=== PATIENT | female | born 1975 | race Hispanic/Latino ===

== ENCOUNTER 2016-08-21 05:56 | Inpatient (IN) | payer MEDICAID ==
[~2016-08-21] VITALS: Ht 152.4 cm; Wt 79.8 kg
[~2016-08-21 05:56] MED LIST: CHOL100045 PO; PREN-51 PO
[2016-08-21] MEDS ORDERED: Lactated Ringer's 1,000 ML IV PRN (07:06)
[2016-08-21] MEDS ORDERED: Carboprost 250 mCg/mL Inj IM PRN ×2 (07:10→10:55)
[2016-08-21] MEDS ORDERED: Methylergonovine 0.2 mg/mL Inj IM PRN ×2 (07:10→10:55)
[2016-08-21] MEDS ORDERED: Oxytocin 30 Units/500 mL LR 30 UNITS in IV Premix 1 EACH IV PRN ×2 (07:10→10:55)
[2016-08-21] MEDS ORDERED: Sodium Chloride LOK Flush 10 mL Syringe IVFLUSH PRN (07:10)
[2016-08-21] MEDS ORDERED: Ondansetron 2 mg/mL 2 mL Inj IVPUSH PRN (07:10)
[2016-08-21] MEDS ORDERED: Hemorrhage Kit, Post Partum XX ONE ×2 (07:10→10:55)
[2016-08-21] MEDS ORDERED: Oxytocin 10 Unit/mL Inj IM PRN ×2 (07:10→10:55)
[2016-08-21 07:34] LABS: Mean Corpuscular Hemoglobin 30.1 pg (27.0-35.0)
--- NOTE | 2016-08-21 08:36 | PCM.HPOB ---
Subjective Date of Service: Aug 21, 2016 Referring Provider: Admitting Physician: Loren Carmona MD Primary Care Physician: Loren Carmona MD Attending Physician: Loren Carmona MD Chief Complaint Contractions. History of Present History of Present Illness 40 Y/O at 39 w0d and JANNIE 08/28/16 based LMP and consistent with 7 weeks US. Presented with contractions and SROM shortly after presentation. Cervix was 3 .5 cm /50%/-2/SROM clear fluid. BP elevated at presentation 130's/95's , no FULTON , change in vision and no N/V. complicated with: 1. AMA 2. H.Pylori gastritis, Dysphagia, GERD, and S/P endoscopy [facility]. On Zantac , omeprazole not effective. Plan for F/U [facility] after delivery. 3. HPV positive pap 2014, Repeat Pap smear 2015 WNL, HPV negative. 4. Multiparty desires permanent sterilization, consent signed 06/20/16. 5. Allergic Rhinitis, [facility]: S/P nasopharyngoscopy on Fluticasone 6. UTI 7. Heart murmur (intermittent) Past Medical History Gynecologic History: LMP 11/22/15 regular normal menstrual cycle. Medical History: G1: 1995: at Term , 7 lb , female, no complications. G2: 1999: at Term , 7 lb , male, no complications. G3: missed AB and D&C at 7 w. Surgical History: L/S Cholecystectomy Hx Tobacco Use: No Hx Alcohol Use: No Hx Substance Use: No Past Family History Family History DM: mother HTN: mother Twins: maternal and paternal side. Review of Systems ROS 10 points ROS is negative except for items mentioned in HPI. Allergy Coded Allergies: No Known Allergies (Verified , 08/21/16) Exam Vital Signs 149/70, 77, 18, 37.1 Exam 150 moderate variability positive accelerations and intermittent early/variable decelerations. Category 2 Constitutional: Well-developed HEENT: Atraumatic Lungs: Clear to Auscultation Heart: Regular Rate/Rhythm, Normal S1, Normal S2, No Murmurs/Rubs/Gallops Abdomen: Gravid Extremities: Pulses Palpable x4 Neurological/Psychiatric: Alert, Oriented X3 Additional Information 6 cm/100%/-3 Labs/Diagnostics Lab/Diagnostic Information A+, Antibody screen negative, Rubella immune, RPR: NR, Hep B Ag NR, HIV NR. GBS neg 08/01/16 GC/CT negative 01/20/16 DM screen negative at 6 weeks and at 25 weeks, 123 and 121 respectively. OB Intrapartum Assessment/Plan Assessment 40 Y/O at 39 w0d and JANNIE 08/28/16 based LMP and consistent with 7 weeks US. Active labor and SROM GBS negative multiparity desires permeant sterilization Pain Management: Declined epidural. Continue close FHT monitoring. Admit with orders and labs Edgard Ochoa MD Aug 21, 2016 08:36
[2016-08-21] MEDS ORDERED: RANI150T11 PO (09:24)
[2016-08-21] MEDS ORDERED: Benzocaine (Dermoplast) 20% 60 Gm Spray TOPICAL PRN (10:55)
[2016-08-21] MEDS ORDERED: Lactated Ringer's 1,000 ML IV SCH (10:55)
[2016-08-21] MEDS ORDERED: Witch Hazel-Glycerin Pads TOPICAL PRN (10:55)
[2016-08-21] MEDS ORDERED: LANOlin HPA 7 Gm Ointment TOPICAL PRN (10:55)
[2016-08-21] MEDS ORDERED: oxyCODONE-Acetamin 5-325 mg Tablet PO ONE (10:57)
[2016-08-21] MEDS: oxyCODONE-Acetamin 5-325 mg Tablet PO PRN ×4 (11:10→21:18)
--- NOTE | 2016-08-21 11:36 | OP ---
[address] [address] OPERATIVE REPORT PATIENT: CEDRICK JOINER : 1975 MR#: [id number] ADMIT: 08/21/2016 JOB ID: [id number] DATE OF SURGERY: 08/21/2016 SURGEON: Edgard Ochoa MD PERMASTONE INSTALLER: Moe Obando DO PREOPERATIVE DIAGNOSIS(ES): 1. Intrauterine at 39 weeks and 0 days. 2. Active labor with spontaneous rupture of membranes. 3. Advanced maternal age. POSTOPERATIVE DIAGNOSIS(ES): 1. Intrauterine at 39 weeks and 0 days. 2. Active labor with spontaneous rupture of membranes. Status post spontaneous vaginal delivery. 3. Advanced maternal age. PROCEDURE: Spontaneous vaginal delivery. DESCRIPTION OF THE PROCEDURE: This is a 40-year-old 4, para 2-0-1-2 presented at 39 weeks and 0 days with expected date of delivery of August 28, 2016 based on last menstrual period and consistent with seven weeks ultrasound. The patients contractions started around midnight August 21, 2016. The patient presented at around 6 a.m. Cervix was 3.5, 50%, -2, and spontaneous rupture of membranes with clear fluid noted at 6:04 a.m. The patient progressed spontaneously in labor to be completely dilated at 9:40 a.m. The patient pushed effectively without epidural to deliver on August 21, 2016, at 10:36 a.m. over an intact perineum. Delivered a female infant in cephalic presentation in right occiput anterior position with no nuchal cord. Shoulders delivered without difficulty. The was placed on the maternal abdomen. Delayed cord clamping was performed after 1 minute. Cord blood was collected for typing. Placenta delivered intact at 10:45 spontaneously with a three-vessel cord. Placenta was discarded. Perineum was examined, with no evidence of laceration. Female with Apgars of 8 and 9 at one and five minutes respectively. Late passage of meconium was noted. Weight is still pending. All instrument, needles, and sponge counts were correct x2. Mother and are covering in the delivery room and in stable condition. IEdgard MD, was present and scrubbed for the entire delivery. [facility]
[2016-08-21] MEDS ORDERED: Ascorbic Acid 500 mg Tablet PO SCH (17:30)
[2016-08-22] MEDS: oxyCODONE-Acetamin 5-325 mg Tablet PO PRN ×2 (06:54→10:49)
--- NOTE | 2016-08-22 06:59 | PCM.HPANE ---
Patient Data Surgeon Admitting Provider:Loren Carmona MD Attending Provider:Loren Carmona MD Primary Care Physician:Loren Carmona MD Other Provider:Maria Esther Zavaleta Anesthesia Reason for Visit Term Labor TERM LABOR Ht/WT & BMI Body Mass Index Allergies Coded Allergies: No Known Allergies (Verified , 08/21/16) Past Anesthesia History Anesthesia History: Denies:: Abnormal Airway, Difficult Intubation Diabetes History Hx Diabetes?: No MRSA MRSA: No Medications Active Scripts Docusate Sodium (Colace)100 Mg [id number] Mg PO DAILY PRN For Constipation #10 CAPSULE Prov:Edgard Ochoa MD 08/22/16 oxyCODONE-Acetaminophen 5-325 mg 1 Each Tablet1-2 Tab PO Q4H PRN For Pain #40 TABLET Ref 0 Prov:Edgard Ochoa MD 08/22/16 Ibuprofen 600 Mg [id number] Mg PO Q6H PRN For Mild Pain #100 TABLET Ref 1 Prov:Edgard Ochoa MD 08/22/16 Ferrous Sulfate (Feosol)325 Mg [id number] Mg PO DAILY #90 TABLET Ref 0 Prov:Edgard Ochoa MD 08/22/16 Reported Medications Ranitidine (Zantac)150 Mg [id number] Mg PO BID 08/21/16 Vit No.78/Iron/FA (Prenatabs FA Tablet)1 Each Tablet1 Each PO DAILY 11/23/14 Discontinued Reported Medications Cholecalciferol (Vitamin D3) (Vitamin D)1,000 Unit Capsule1,000 Unit PO DAILY # 1 BOTTLE Ref 0 11/23/14 History History of ENT Problems?: No HEENT History: Denies:: Abnormal Airway Difficult Intubation Hx of Heart Problems?: No Hx of Respiratory Problem?: No Hx Neurologic Problems?: No Neurological History: Positive for:: Dizziness ( hx persistent vertigo with nausea/vomiting) Hx of GI Problems?: No Hx of Problems?: No Female Hx: Denies:: Currently Hx Musculoskeletal Problems?: No Hx of Psycho/Social Problems?: No Psycho Social History: Positive for:: Hx Depression Hx Surgeries?: No Hx Any Other Health Problems?: No Other History: Denies:: Cancer Hx Diabetes: No Hx Alcohol Use: NoHx Substance Use: No Smoking Status: Never Smoker Stop/Bang Risk Assessment Category Category 1A: Patient has history of documented sleep apnea, and HAS NOT received any narcotic, sedative or anesthesia administration during this stay. Category 1B: Patient has history of documented sleep apnea, and HAS received any narcotic , sedative or anesthesia administration during this stay Category 2: Patient has SUSPECTED Obstructive Sleep Apnea, and HAS received any narcotic , sedative or anesthesia administration during this stay. Category 3: Patient has SUSPECTED Obstructive Sleep Apnea and HAS NOT received narcotic, sedative or anesthesia administration during this stay. Category 4: Outpatient in Procedural Areas with known sleep apnea or who screen positive for High Risk via the STOP/BANG questionnaire. Meds/Labs/Diagnostics Admission Meds Current Medications Ferrous Sulfate (Feosol) 325 mg BIDWM PO Last administered on 08/21/16 17:29; Start 08/21/16 at 17:30 Ascorbic Acid (Vitamin C) 500 mg BIDWM PO Last administered on 08/21/16 17:29; Start 08/21/16 at 17:30 Labs Test 08/21/16 06:40 White Blood Count 9.5th/mm3 (3.8-10.1) Red Blood Count 4.22mil/mm3 (3.90-5.20) Hemoglobin 12.7g/dL (12.0-15.6) Hematocrit 36.7% (35.0-46.0) Mean Corpuscular Volume 87.0fL (81-100) Mean Corpuscular Hemoglobin 30.1pg (27.0-35.0) Mean Corpuscular Hemoglobin Concent 34.6% (32.0-37.0) Red Cell Distribution Width 14.6% (12.3-15.4) Platelet Count 196bil/L (150-400) Hematology Comments Urine Random Creatinine 28mg/dL (16-392) Urine Random Total Protein 7mg/dL (0-15) Urine Protein/Creatinine Ratio 0.25 Blood Urea Nitrogen 11mg/dL (6-20) Creatinine 0.54mg/dL (0.57-1.00) Uric Acid 5.5mg/dL (2.6-7.2) Aspartate Amino Transf (AST/SGOT) 25U/L (0-50) Alanine Aminotransferase (ALT/SGPT) 18U/L (0-32) Plan Impression Patient chart reviewed, patient interviewed and anesthestic plan with risks, benefits, and alternatives discussed, and informed consent obtained. NPO Status: confirmed before mn Other verbal communictaion from Child Care Specialist, confirmed by nursing staff, procedure, Tubal Ligation cancelled.as of 0850 Norman Granados MD Aug 22, 2016 06:59
[2016-08-22 07:32] LABS: Mean Corpuscular Hemoglobin 29.5 pg (27.0-35.0); Mean Corpuscular Volume 87.6 fL (81-100)
--- NOTE | 2016-08-22 08:47 | PCM.DIOB ---
Obstetrical Disch Instruction Date of Service: Aug 22, 2016 Dates of Hospitalization Date of Hospital Admission Aug 21, 2016 at 06:10 Providers Admitting Physician: Loren Carmona MD Primary Care Physician: Loren Carmona MD Attending Physician: Loren Carmona MD Discharge Diagnosis Discharge Diagnosis Status post normal vaginal delivery Mild anemia Post Operative diagnosis Status post normal vaginal delivery Mild anemia Problems: Diet Discharge Diet: No restrictions Activity Discharge Activity-General: Pelvic Rest for 6 weeks (No sex, no tampons, nor douching) Dressing and Incisional Care Hygiene: May shower, Perineal care, Sitz bath, Dermoplast spray Follow Up Plan Follow-up Provider (F9): Edgard Ochoa MD Follow-up appointment: Weeks (Two ) Call your provider for: Fever or Chills, Shortness of breath, Heavy vaginal bleeding, Heavy bleeding, Epigastric pain (nausea or vomiting ), Excessive constipation, Vaginal discomfort, Red painful breasts, Other (Headache, change in vision , leg swelling, leg pain or change in color. ) Edgard Ochoa MD Aug 22, 2016 08:47
[2016-08-22] MEDS ORDERED: OXYC1TAB24 PO (08:50)
[2016-08-22] MEDS ORDERED: IBUP-1827 PO (08:50)
[2016-08-22] MEDS ORDERED: DOCU-41 PO (08:50)
[2016-08-22] MEDS ORDERED: FERR-74 PO (08:50)
--- NOTE | 2016-08-22 08:51 | PCM.DC.OB ---
Obstetrical Discharge Summary Date of Service Aug 22, 2016 Date of hospital admission Aug 21, 2016 at 06:10 Date of Discharge: Aug 22, 2016 Providers Admitting Physician: Loren Carmona MD Primary Care Physician: Loren Carmona MD Attending Physician: Loren Carmona MD Diagnosis at Time of Discharge Status post normal vaginal delivery Mild anemia Problems: Brief History and Physical: 40 Y/O at 39 w0d and JANNIE 08/28/16 based LMP and consistent with 7 weeks US. Presented with contractions and SROM shortly after presentation. Cervix was 3 .5 cm /50%/-2/SROM clear fluid. BP elevated at presentation 130's/95's , no FULTON , change in vision and no N/V. complicated with: 1. AMA 2. H.Pylori gastritis, Dysphagia, GERD, and S/P endoscopy [facility]. On Zantac , omeprazole not effective. Plan for F/U [facility] after delivery. 3. HPV positive pap 2014, Repeat Pap smear 2015 WNL, HPV negative. 4. Multiparty desires permanent sterilization, consent signed 06/20/16. 5. Allergic Rhinitis, [facility]: S/P nasopharyngoscopy on Fluticasone 6. UTI 7. Heart murmur (intermittent) Delivered via 08/22/16. Outcome: Female with Apgars of 8 and 9 at one and five minutes respectively weight 3075 g. See delivery note for details. Hospital Course: At discharge pain was well controlled. Patient was ambulating, voiding without difficulty and tolerating regular diet with no nausea and no vomiting. Exam Vital Signs 120/59 68 16 36.8 Constitutional: Well-developed HEENT: Atraumatic Lungs: Clear to Auscultation Heart: Regular Rate/Rhythm, Normal S1, Normal S2, No Murmurs/Rubs/Gallops Abdomen: Fundus firm. Extremities: Pulses Palpable x4 Neurological/Psychiatric: Alert, Oriented X3 Laboratory Tests 72 Hours Test 08/21/16 06:40 08/22/16 07:07 White Blood Count 9.5th/mm3 (3.8-10.1) 12.2th/mm3 (3.8-10.1) Red Blood Count 4.22mil/mm3 (3.90-5.20) 3.56mil/mm3 (3.90-5.20) Hemoglobin 12.7g/dL (12.0-15.6) 10.5g/dL (12.0-15.6) Hematocrit 36.7% (35.0-46.0) 31.2% (35.0-46.0) Mean Corpuscular Volume 87.0fL (81-100) 87.6fL (81-100) Mean Corpuscular Hemoglobin 30.1pg (27.0-35.0) 29.5pg (27.0-35.0) Mean Corpuscular Hemoglobin Concent 34.6% (32.0-37.0) 33.7% (32.0-37.0) Red Cell Distribution Width 14.6% (12.3-15.4) 14.9% (12.3-15.4) Platelet Count 196bil/L (150-400) 177bil/L (150-400) Hematology Comments Urine Random Creatinine 28mg/dL (16-392) Urine Random Total Protein 7mg/dL (0-15) Urine Protein/Creatinine Ratio 0.25 Blood Urea Nitrogen 11mg/dL (6-20) Creatinine 0.54mg/dL (0.57-1.00) Uric Acid 5.5mg/dL (2.6-7.2) Aspartate Amino Transf (AST/SGOT) 25U/L (0-50) Alanine Aminotransferase (ALT/SGPT) 18U/L (0-32) Labs/Diagnostics Labs/Diagnostics Lab/Diagnostic Information A+, Antibody screen negative, Rubella immune, RPR: NR, Hep B Ag NR, HIV NR. GBS neg 08/01/16 GC/CT negative 01/20/16 DM screen negative at 6 weeks and at 25 weeks, 123 and 121 respectively. Docusate Sodium (Colace) 100 Mg Capsule 100 MG PO DAILY PRN PRN For Constipation Prescribed by: GIO VARGAS MD Ferrous Sulfate (Feosol) 325 Mg Tablet 325 MG PO DAILY Prescribed by: GIO VARGAS MD Ibuprofen (Ibuprofen) 600 Mg Tablet 600 MG PO Q6H PRN PRN For Mild Pain Prescribed by: GIO VARGAS MD Vit No.78/Iron/FA (Prenatabs FA Tablet) 1 Each Tablet 1 EACH PO DAILY ( Reported) Last Taken: Unknown Dose on Unknown Date & Time Ranitidine (Zantac) 150 Mg Tablet 150 MG PO BID (Reported) Last Taken: Unknown Dose on 08/20/16 1900 oxyCODONE-Acetaminophen 5-325 mg ( oxyCODONE-Acetaminophen 5-325 mg) 1 Each Tablet 1-2 TAB PO Q4H PRN PRN For Pain Prescribed by: GIO VARGAS MD Discontinued Medications Cholecalciferol (Vitamin D3) (Vitamin D) 1,000 Unit Capsule 1,000 UNIT PO DAILY (Reported) Disposition home. Discharge Condition: stable Diet Discharge Diet: No restrictions Activity Discharge Activity-General: Pelvic Rest for 6 weeks (No sex, no tampons, nor douching) Dressing and Incisional Care Hygiene: May shower, Perineal care, Sitz bath, Dermoplast spray Follow Up Plan Follow-up Provider (F9): Gio Vargas MD Follow-up appointment: Weeks (Two ) Call your provider for: Fever or Chills, Shortness of breath, Heavy vaginal bleeding, Heavy bleeding, Epigastric pain (nausea or vomiting ), Excessive constipation, Vaginal discomfort, Red painful breasts, Other (Headache, change in vision , leg swelling, leg pain or change in color. ) Gio Vargas MD Aug 22, 2016 08:51
[2016-08-22 09:52] VITALS: BP 120/59; PULSE 68; RESP 16
== END 2016-08-22 11:00 | disposition home or self-care (01) | DRG 560 ==
LOC: FBCO 05:56 → FBC 06:10
PROVIDERS: ADMIT Obstetrics & Gynecology; ATTEND Obstetrics & Gynecology
PROC: 10E0XZZ Delivery of Products of Conception, External Approach (ICD-10-PCS; principal; 2016-08-21)
DX: O42.02 Full-term premature rupture of membranes, onset of labor within 24 hours of rupture (principal); D64.9 Anemia, unspecified; O99.02 Anemia complicating childbirth; Z3A.39 39 weeks gestation of pregnancy; Z37.0 Single live birth; K21.9 Gastro-esophageal reflux disease without esophagitis

== ENCOUNTER 2016-08-22 20:57 | Emergency (ER) | payer MEDICAID ==
[~2016-08-22] VITALS: Ht 162.6 cm; Wt 76.2 kg
[~2016-08-22 20:57] MED LIST changes: -CHOL100045 PO; +DOCU-41 PO; +FERR-74 PO; +IBUP-1827 PO; +OXYC1TAB24 PO; +RANI150T11 PO
[2016-08-22 21:31] VITALS: BP 123/71; PULSE 108; RESP 16; O2SAT 98
--- NOTE | 2016-08-22 22:44 | ED.REPORT ---
HPI-Abd Pain F Under 40 Date of Service Aug 22, 2016 ED Provider: Dr. Chad Ramos D.O. A healthy 40 year old female one day post- presents to the ED with an intermittent fever (37.6 in ED) onset yesterday. The patient also reports pelvic pain, mild vaginal bleeding with clots, and sore breasts bilaterally. She denies cough, sore throat, breast erythema, or other symptoms. The patient is currently . She was discharged from the hospital today after a normal vaginal delivery yesterday. Her is still in the hospital. Nursing Notes Stated Complaint: FEVER/ PAIN Chief Complaint: Female Abdominal Pain Nursing Notes Reviewed: Yes Allergies: Coded Allergies: No Known Allergies (Verified , 08/21/16) Scheduled Ferrous Sulfate (Feosol) 325 Mg Tablet 325 MG PO DAILY Vit No.78/Iron/FA (Prenatabs FA Tablet) 1 Each Tablet 1 EACH PO DAILY Ranitidine (Zantac) 150 Mg Tablet 150 MG PO BID Scheduled PRN Docusate Sodium (Colace) 100 Mg Capsule 100 MG PO DAILY PRN PRN For Constipation Ibuprofen (Ibuprofen) 600 Mg Tablet 600 MG PO Q6H PRN PRN For Mild Pain oxyCODONE-Acetaminophen 5-325 mg (oxyCODONE-Acetaminophen 5-325 mg) 1 Each Tablet 1-2 TAB PO Q4H PRN PRN For Pain General Time Seen by MD: 22:43 Chief Complaint Other (Fever) Hx Obtained From: Patient Arrived By: Walk-in Sudden in Onset?: Yes Onset Occurred: Yesterday Symptom Duration: Since onset Location: : Pelvis Quality: Painful Severity: Current: Moderate Severity: Maximum: Moderate Associated with: Reports: Vaginal bleeding Pertinent Negative: Relieved by nothing Recent Healthcare: Recent doctor visit, Recent hospitalization Past Medical History Past Medical History None reported Past Surgical History None reported Smoking History Never Smoker Social History Alcohol Use: Denies alcohol use Drug Use: Denies drug use Other Social History: Good social support Ambulatory Status Independent Review of Systems Review of Systems Note: + Sore breasts bilaterally - Breast erythema Constitutional: Reports: Fever (Intermittent, 37.6 in ED), Denies: Lethargy Respiratory: Denies: Dyspnea on exertion, Non-productive cough, Shortness of breath GI: Denies: Abdominal pain, Diarrhea, Vomiting Female: Reports: Pelvic pain, Vaginal bleeding - abnl, Denies: Dysuria Musculoskeletal: Denies: Back pain Complete sys rev & neg: except as marked. Ears / Nose / Throat: Denies: Sore throat Physical Exam Initial Vital Signs Vital Signs (First) Date Time Temp Pulse Resp B/P Pulse Ox O2 Delivery O2 Flow Rate FiO2 08/22/16 21:31 37.6 108 16 123/71 98 Room Air Initial VS: Reviewed Head / Eyes: Atraumatic, Normocephalic ENT: Conjunctiva normal, No scleral icterus Neck: Supple, Full range of motion Skin: Warm, Dry, No cyanosis Neurologic: Alert, Oriented, Nonfocal Psychiatric: Mood/affect normal, Behavior normal, Normal thought content General/Constitutional: Awake, Alert Skin feels hot Respiratory / Chest: Breath sounds NL, Breath sounds = bilat, No respiratory distress Cardiovascular: Regular rhythm, Heart sounds NL Heart Rate / Rhythm: Positive: Tachycardia Abdomen: Atraumatic, Soft Pelvic tenderness Interpretation & Diagnostics URINE TEST: Positive URINE DIPSTICK: 1.005 sp gravity 5 pH Normal Glucose Normal Urobilinogen ~ 250 [place]/ml Blood Otherwise Negative INFLUENZA NEGATIVE Lab Results Interpretation Result Diagram: 08/22/16 2300 08/22/16 2300 Test 08/22/16 22:06 08/22/16 23:00 Urine Color Straw (YELLOW) Urine Appearance Hazy (CLEAR,HAZY) Urine pH 6.5 (5.0-8.0) Urine Specific [place] 1.010 (1.003-1.035) Urine Protein Negativemg/dL (NEG,TRACE) Urine Glucose (UA) Negativemg/dL (NEGATIVE) Urine Ketones Negativemg/dL (NEGATIVE) Urine Occult Blood Large (NEGATIVE) Urine Nitrite Negative (NEGATIVE) Urine Bilirubin Negative (NEGATIVE) Urine Urobilinogen Normalmg/dL (NORMAL) Urine Leukocyte Esterase Trace (NEGATIVE) Urine RBC 11-50/hpf (0-2) Urine WBC 11-50/hpf (0-5) Urine Epithelial Cells Moderate/hpf (NONE-MOD) Urine Crystals None seen (NONE SEEN) Urine Bacteria Many/hpf (NONE-FEW) Urine Hyaline Casts None/lpf (NONE) Urine Granular Casts None seen (NONE SEEN) Urine Waxy Casts None seen (NONE SEEN) Urine Red Blood Cell Casts None seen (NONE SEEN) Urine White Blood Cell Casts None seen (NONE SEEN) Urine Mucus Present (None Seen) Urine Trichomonas None seen (NONE SEEN) Urine Yeast None (NONE SEEN) Urinalysis Comment None Urine Culture Reflexed Indicated Hold Urine Received (Received) White Blood Count 14.1th/mm3 (3.8-10.1) Red Blood Count 3.51mil/mm3 (3.90-5.20) Hemoglobin 10.9g/dL (12.0-15.6) Hematocrit 31.0% (35.0-46.0) Mean Corpuscular Volume 88.3fL (81-100) Mean Corpuscular Hemoglobin 31.1pg (27.0-35.0) Mean Corpuscular Hemoglobin Concent 35.2% (32.0-37.0) Red Cell Distribution Width 14.8% (12.3-15.4) Platelet Count 177bil/L (150-400) Neutrophils (%) (Auto) 73.8% (40-74) Lymphocytes (%) (Auto) 18.4% (14-46) Monocytes (%) (Auto) 7.2% (4-12) Eosinophils (%) (Auto) 0.1% (0-5) Basophils (%) (Auto) 0.1% (0-3) Band Neutrophils % 0% (1-5) Sodium Level 136mEq/L (134-144) Potassium Level 3.9mEq/L (3.5-5.2) Chloride Level 101mEq/L (97-108) Carbon Dioxide Level 19mmol/L (18-29) Blood Urea Nitrogen 17mg/dL (6-20) Creatinine 0.60mg/dL (0.57-1.00) Estimat Glomerular Filtration Rate 160mL/min (>59) Glucose Level 90mg/dL (60-99) Lactic Acid Level 1.7mmol/L (0.4-2.0) Calcium Level 8.4mg/dL (8.5-10.1) Magnesium Level 1.6mg/dL (1.6-2.6) Total Bilirubin 0.2mg/dL (0.0-1.2) Aspartate Amino Transf (AST/SGOT) 25U/L (0-50) Alanine Aminotransferase (ALT/SGPT) 17U/L (0-32) Alkaline Phosphatase 95U/L (25-150) Total Protein 6.1g/dL (6.4-8.4) Albumin 3.1g/dL (3.4-5.0) Lipase 27U/L (13-60) Hold Ramirez Top Tube Received (Received) Re-Eval/Medical Decision Med Decision/Clinical Course I suspect that she has urinary tract infection. This seems highly unlikely that she would have endometritis the next day after delivery. Augmentin is a good drug for this as well either way. She looks great. Heart rate came down to 90. Temperature was normal. Right nostril reassuring. She is going upstairs and see her baby. 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 Re-Evaluation/Progress : Time of Eval: 00:22 Patient Status: Condition improved Re-Evaluation/Progress Note: Patient is much improved after fluids. Discussed with patient lab results, diagnosis, and plan for discharge. Follow-up and return to the ER instructions given. Patient agrees with plan for care and all questions were addressed. Counseled Regarding: Diagnosis, Lab results, Need for follow-up, When/why to return to ED Discharge & Departure Primary Impression: Urinary tract infection Urinary tract infection type: acute cystitis Hematuria presence: without hematuria Qualified Code: N30.00 - Acute cystitis without hematuria Disposition: Home Discharge Condition All VS Reviewed: Yes Condition: Critical Patient Instructions: Urinary Tract Infection in Women (DC) Additional Instructions: You appear to have a urinary tract infection. We are culturing your urine to confirm this. The flu swab was negative. You have a mildly elevated white blood cell count which is common after delivery. I would like you to take Augmentin twice daily for 7 days. This should be safe with breast-feeding. Tylenol or Motrin as directed for fever. Follow-up with your drying and winding supervisor in 48 -72 hours. Have the urine culture followed up with. Return if any problems or any worsening symptoms. [employer] TRANSLATE Usted parece tener johanne infeccin del tracto urinario. Estamos cultivando faust orina para confirmar esto. El hisopo de la gripe fue negativo. Tiene un recuento de glbulos blancos levemente elevado que es comn despus del parto. Me gustara que laury Augmentin dos veces al da noemy 7 [place]. [place] debe ser seguro con la lactancia. Tylenol o Motrin julianne se indica para la fiebre. Seguimiento con faust obstetra en 48-72 horas. Carol que la cultura de la orina siga con. Regresar si hay problemas o empeoramiento de los sntomas. Referrals: Loren Carmona MD (PCP) Scribe Attestation Portions of this note were transcribed by Renetta Luke. I, Dr. Ramos, personally performed the history, physical exam, and medical decision-making; I reviewed and confirmed the accuracy of the information in the transcribed note. Signed by: Jericho Ahmadi, 08/23/2016, 01:14 copies to: Loren Carmona MD, Todd P DO Aug 22, 2016 22:44 RENETTA LUKE Aug 22, 2016 22:52
[2016-08-22] MEDS ORDERED: 0.9% Sodium Chloride 1,000 ML IV SCH (22:50)
[2016-08-22 22:54] LABS: APPEARANCE,URINE HAZY (CLEAR,HAZY); COLOR,URINE STRAW (YELLOW); OCCULT BLOOD,URINE LARGE (NEGATIVE); PH,URINE 6.5 (5.0-8.0); UROBILINOGEN,URINE NORMAL (NORMAL)
[2016-08-22] MEDS ORDERED: cefTRIAXone Inj 2,000 MG in Dextrose 5% Minibag Plus 50 ML IV ONE (23:00)
[2016-08-22 23:20] LABS: BASOPHILS % (AUTO) 0.1 % (0-3); EOSINOPHILS % (AUTO) 0.1 % (0-5); MONOCYTES % (AUTO) 7.2 % (4-12); Mean Corpuscular Hemoglobin 31.1 pg (27.0-35.0); Mean Corpuscular Volume 88.3 fL (81-100); NEUTROPHILS % (AUTO) 73.8 % (40-74); Platelet Count 177 bil/L (150-400)
[2016-08-22 23:38] LABS: Magnesium 1.6 mg/dL (1.6-2.6)
[2016-08-23 00:50] VITALS: BP 128/68; PULSE 76; RESP 14; O2SAT 96
== END 2016-08-23 00:54 | disposition home or self-care (01) ==
LOC: AIC 20:57 → SED 08-23 00:54
DX: O86.22 Infection of bladder following delivery (principal); B96.20 Unspecified Escherichia coli [E. coli] as the cause of diseases classified elsewhere
CPT/HCPCS: 36415; 80053; 81000; 81025; 83605; 83690; 83735; 85025; 87077; 87086; 87088; 87186; 87804; 96361; 96365; 96375; 99285; J0696